=== PATIENT | male | born 1955 | race Caucasian/White ===

== ENCOUNTER 2017-01-30 09:31 | Outpatient (CLI) | payer MEDICARE ==
[~2017-01-30] VITALS: Ht 172.7 cm; Wt 82.0 kg
[~2017-01-30 09:31] MED LIST: LIDOCAINE 2% INJ 100 MG/5 ML SDV (FOR ANES.) As Ordered ONE; PROPOFOL 200 MG/20 ML VIAL As Ordered ONE
[2017-01-30] MEDS ORDERED: NS 1,000 ML IV ONE (10:00)
[2017-01-30] MEDS ORDERED: LEVE1INJ5 SC (10:36)
[2017-01-30] MEDS ORDERED: APRI0.37 PO (10:36)
[2017-01-30] MEDS ORDERED: LEXA1TAB PO (10:36)
[2017-01-30] MEDS ORDERED: GLYB1TAB67 PO (10:36)
[2017-01-30] MEDS ORDERED: EZET10TA PO (10:36)
[2017-01-30] MEDS ORDERED: ALEN70SO PO (10:36)
[2017-01-30] MEDS ORDERED: LISI-542 PO (10:36)
[2017-01-30] MEDS ORDERED: JANU100T PO (10:36)
[2017-01-30] MEDS ORDERED: TRAM50TA2 PO (10:36)
[2017-01-30] MEDS ORDERED: MELO15TA4 PO (10:36)
[2017-01-30] MEDS ORDERED: [UNRECOGNIZED DRUG - OTHER] (10:36)
--- NOTE | 2017-01-30 11:17 | ROOR ---
Patient Name: Tyler Richey Procedure Date: 01/30/2017 10:58 AM Date of : 1955 Age: 61 Room: [facility] Gender: Male Note Status: Finalized Procedure: Upper GI endoscopy Indications: Heartburn Providers: Santos Morris MD Referring MD: SANDRA LO MD Requesting Provider: Medicines: Monitored Anesthesia Care Complications: No immediate complications. Procedure: Pre-Anesthesia Assessment: - The heart rate, respiratory rate, oxygen saturations, blood pressure, adequacy of pulmonary ventilation, and response to care were monitored throughout the procedure. The Endoscope was introduced through the mouth, and advanced to the second part of duodenum. The upper GI endoscopy was accomplished without difficulty. The patient tolerated the procedure well. Findings: The Z-line was regular and was found 40 cm from the incisors. A small hiatal hernia was present. No other significant abnormalities were identified in a careful examination of the stomach. The exam of the duodenum was otherwise normal. Impression: - Z-line regular, 40 cm from the incisors. - Small hiatal hernia. - No specimens collected. - The examination was otherwise normal. Recommendation: - Patient has a contact number available for emergencies. The signs and symptoms of potential delayed complications were discussed with the patient. Return to normal activities tomorrow. Written discharge instructions were provided to the patient. - High fiber diet. - Discharge patient to home. - Follow an antireflux regimen. - Continue present medications. - Return to referring physician. - The findings and recommendations were discussed with the patient's family. Santos Morris MD Santos Morris MD 01/30/2017 11:16:37 AM This report has been signed electronically. Number of Addenda: 0 Note Initiated On: 01/30/2017 10:58 AM Estimated Blood Loss: Estimated blood loss: none.
--- NOTE | 2017-01-30 11:32 | ROOR ---
Patient Name: Tyler Richey Procedure Date: 01/30/2017 10:58 AM Date of : 1955 Age: 61 Room: [facility] Gender: Male Note Status: Finalized Procedure: Total Colonoscopy to Cecum + ileoscopy + Biopsy Polypectomy Indications: Follow-up of Crohn's disease of the small bowel Providers: Santos Morris MD Referring MD: SANDRA LO MD Requesting Provider: Medicines: Monitored Anesthesia Care Complications: No immediate complications. Procedure: Pre-Anesthesia Assessment: - The heart rate, respiratory rate, oxygen saturations, blood pressure, adequacy of pulmonary ventilation, and response to care were monitored throughout the procedure. The Colonoscope was introduced through the anus and advanced to the cecum, identified by appendiceal orifice and ileocecal valve. The colonoscopy was performed without difficulty. The patient tolerated the procedure well. The quality of the bowel preparation was good. Findings: The perianal and digital rectal examinations were normal. Non-bleeding internal hemorrhoids were found during retroflexion. The hemorrhoids were small and Grade I (internal hemorrhoids that do not prolapse). A diminutive polyp was found in the cecum. The polyp was sessile. The polyp was removed with a jumbo cold forceps. Resection and retrieval were complete. The exam was otherwise without abnormality. Localized inflammation, severe and characterized by congestion (edema), erythema and scarring was found in the distal ileum. The exam was otherwise without abnormality. Impression: - Non-bleeding internal hemorrhoids. - One diminutive polyp in the cecum, removed with a jumbo cold forceps. Resected and retrieved. - The examination was otherwise normal. - Crohn's disease with ileitis. - The examination was otherwise normal. - The exam was otherwise normal to the cecum. Recommendation: - Patient has a contact number available for emergencies. The signs and symptoms of potential delayed complications were discussed with the patient. Return to normal activities tomorrow. Written discharge instructions were provided to the patient. - Resume previous diet. - Discharge patient to home. - Continue present medications. - Await pathology results. - Telephone GI clinic for pathology results in 1 week. - Return to referring physician. - The findings and recommendations were discussed with the patient's family. Santos Morris MD Santos Morris MD 01/30/2017 11:32:00 AM This report has been signed electronically. Number of Addenda: 0 Note Initiated On: 01/30/2017 10:58 AM Estimated Blood Loss: Estimated blood loss: none.
[2017-01-30 11:55] VITALS: BP 144/73
== END 2017-01-30 12:11 ==
LOC: M OPP 09:31
PROVIDERS: ATTEND Internal Medicine Gastroenterology
DX: K50.00 Crohn's disease of small intestine without complications (principal); K64.0 First degree hemorrhoids; D12.0 Benign neoplasm of cecum; R12 Heartburn; K44.9 Diaphragmatic hernia without obstruction or gangrene; E78.5 Hyperlipidemia, unspecified; I10 Essential (primary) hypertension; E10.9 Type 1 diabetes mellitus without complications; F41.9 Anxiety disorder, unspecified; Z88.0 Allergy status to penicillin

== ENCOUNTER → 2017-02-11 | Outpatient (CLI) | payer MEDICARE ==
[~2017-02-11] MED LIST changes: +ALEN70SO PO; +APRI0.37 PO; +E-Z-GAS II EFFERVESCENT PACKET (SODIUM BICARB./CITRIC ACID/SIMETHICONE) As Ordered ONE; +E-Z-HD 98% w/w 340GM SUSP BTL As Ordered ONE; +E-Z-PAQUE 96% w/w SUSP 176GM BTL As Ordered ONE; +EZET10TA PO; +GLYB1TAB67 PO; +JANU100T PO; +LEVE1INJ5 SC; +LEXA1TAB PO; -LIDOCAINE 2% INJ 100 MG/5 ML SDV (FOR ANES.) As Ordered ONE; +LISI-542 PO; +MELO15TA4 PO; -PROPOFOL 200 MG/20 ML VIAL As Ordered ONE; +TRAM50TA2 PO; +[UNRECOGNIZED DRUG - OTHER]
--- NOTE | 2017-02-11 19:26 | REP ---
UPPER GI EXAMINATION: The procedure was performed by NELL Yousif under the direct supervision of Dr. Merida. All imaging was reviewed with Dr. Merida prior to dictation. Patient was able to ingest liquid barium and air in a quantity sufficient to produce a double contrast examination. The oral and pharyngeal stages of deglutition appear unremarkable. Esophageal transport was prompt and efficient There was no evidence of esophagitis, stricture, mucosal ring or hiatal hernia. Gastroesophageal reflux was not observed on this exam. The stomach vasquez were normally outlined. The rugal folds were smooth and regular. There was no evidence of gastritis, neoplasm, or ulcerative disease. The duodenal vasquez are normally outlined. There was no evidence of duodenitis, pancreatitis, peptic ulcer disease or neoplasm. The visualized portion of the proximal small bowel was normal in course and caliber. Additional liquid barium was given at the end of the examination in order to perform a small bowel follow through. During fluoroscopy gentle palpation of the small bowel loops showed them to be freely movable and pliable without evidence of a fixed or angulated loop. The small bowel mucosal pattern was normal in course and caliber. There was no evidence of a transition to suggest a partial small bowel obstruction. Spot filming of the terminal ileum showed there to be some narrowing and mural thickening. This narrowing does not appear to cause any obstruction at this time. This is consistent with his history of Crohn's disease. IMPRESSION: Unremarkable double contrast upper GI examination. Small bowel follow through showing narrowing of the terminal ileum with mural thickening. This is consistent with Crohn's disease. Fluoroscopy time was 3 minutes and 59 seconds. Reviewed by NELL Pierre 02/12/2017 08:17 AEdited and Signed by Shay Merida MD 02/12/2017 09:52 A
== END ==
LOC: M RAD 09:25
PROVIDERS: ATTEND Internal Medicine Gastroenterology
DX: K50.00 Crohn's disease of small intestine without complications (principal)

== ENCOUNTER → 2017-12-09 | Outpatient (CLI) | payer MEDICARE ==
[2017-12-09 13:22] LABS: APPEARANCE, URINE CLEAR (CLEAR); BACTERIA, URINE AUTO NEGATIVE (NEGATIVE); BILIRUBIN, URINE AUTO NEGATIVE (NEGATIVE); BLOOD, URINE BLOOD NEGATIVE (NEGATIVE); COLOR, URINE YELLOW (YELLOW); GLUCOSE, URINE (UA) AUTO 3+ mg/dL (NEGATIVE); KETONE, URINE AUTO NEGATIVE (NEGATIVE); LEUKOCYTE ESTERASE, URINE AUTO NEGATIVE (NEGATIVE); NITRITE, URINE AUTO NEGATIVE (NEGATIVE); PROTEIN, URINE AUTO NEGATIVE (NEGATIVE); RBC, URINE AUTO 0 /HPF (0-3); SPECIFIC GRAVITY URINE AUTO 1.026 (1.002-1.035); SQUAMOUS EPITHELIAL CELL UR AU 0 /HPF (0-6); UROBILINOGEN, URINE AUTO 0.2 mg/dL (0.0-2.0); WBC, URINE AUTO 0 /HPF (0-3)
[2017-12-09 14:19] LABS: ANION GAP 9 MEQ/L (8-16); BLOOD UREA NITROGEN 26 MG/DL (7-18); CALCIUM LEVEL 9.2 MG/DL (8.8-10.2); CARBON DIOXIDE LEVEL 27 MEQ/L (21-32); CHLORIDE LEVEL 101 MEQ/L (98-107); CREATININE FOR GFR 1.56 MG/DL (0.70-1.30); GLOMERULAR FILTRATION RATE 48.4 (>49); GLUCOSE, FASTING 541 MG/DL (70-100); SODIUM LEVEL 137 MEQ/L (136-145)
== END ==
LOC: M SMT 10:39
DX: N13.30 Unspecified hydronephrosis (principal); Z79.899 Other long term (current) drug therapy
CPT/HCPCS: 80048

== ENCOUNTER → 2022-12-19 | Outpatient (REF) | payer MEDICARE ==
[~2022-12-19] MED LIST changes: -ALEN70SO PO; +ALEN70SO2 PO; -E-Z-GAS II EFFERVESCENT PACKET (SODIUM BICARB./CITRIC ACID/SIMETHICONE) As Ordered ONE; -E-Z-HD 98% w/w 340GM SUSP BTL As Ordered ONE; -E-Z-PAQUE 96% w/w SUSP 176GM BTL As Ordered ONE; -EZET10TA PO; +EZET10TA21 PO; +GLYB-150 PO; -GLYB1TAB67 PO; +INSU100I6 SC; -LEVE1INJ5 SC; -LISI-542 PO; +LISI5TAB11 PO; +MELO15TA28 PO; -MELO15TA4 PO
[2022-12-19 18:38] LABS: PERCENT SATURATION 9.1 % (19.7-50.0)
[2022-12-19 18:41] LABS: FERRITIN 63.3 NG/ML (10.5-307.3)
[2022-12-19 18:45] LABS: CREATININE,RANDOM URINE 87.6 MG/DL
[2022-12-19 18:47] LABS: TOTAL PROTEIN,RANDOM URINE 138.8 MG/DL (0.0-14.0)
== END ==
LOC: M LAB REF 17:10
PROVIDERS: ATTEND Internal Medicine Nephrology
DX: D61.3 Idiopathic aplastic anemia (principal); N18.32 Chronic kidney disease, stage 3b

== ENCOUNTER 2023-03-11 13:34 | Outpatient (CLI) | payer MEDICARE ==
[~2023-03-11] VITALS: Ht 172.7 cm; Wt 83.6 kg
[~2023-03-11 13:34] MED LIST changes: +ALBUTEROL SULFATE 2.5MG/0.5ML INH NEB SOLN INH PRN; +EPINEPHrine INJ 1 MG/ML 1ML AMP IM PRN; +diphenhydrAMINE 50MG/ML VIAL IV PRN; +methylPREDNISolone 125MG 2ML VIAL IV PRN
[2023-03-11 13:50] VITALS: BP 137/69; O2SAT 98
[2023-03-11] MEDS ORDERED: FERRIC CARBOXYMALTOSE INJ 750 MG in NS 250 ML (>50kg) IV ONE ×3 (14:00)
[2023-03-11] MEDS ORDERED: NS 1,000 ML IV SCH (14:00)
[2023-03-11 15:50] VITALS: BP 176/77; O2SAT 99
== END 2023-03-11 15:50 ==
LOC: M INFU 13:34
PROVIDERS: ATTEND Internal Medicine Nephrology
DX: E61.1 Iron deficiency (principal); Z88.0 Allergy status to penicillin
CPT/HCPCS: 96365; J1439

== ENCOUNTER → 2023-12-13 | Outpatient (REF) | payer OTHER, MEDICARE ==
[~2023-12-13] MED LIST changes: -ALBUTEROL SULFATE 2.5MG/0.5ML INH NEB SOLN INH PRN; +AMLO1TAB24; -EPINEPHrine INJ 1 MG/ML 1ML AMP IM PRN; +FERR325T3; +HYDR-3363; +JANU25TA; +LANTINJ4; +LEVO50TA5; +MULT-90; +NATE60TA13; +NOVOINJ3; +PANT40TA29; -diphenhydrAMINE 50MG/ML VIAL IV PRN; -methylPREDNISolone 125MG 2ML VIAL IV PRN
[2023-12-13 18:07] LABS: TOTAL PROTEIN,RANDOM URINE 76.4 MG/DL (0.0-14.0)
[2023-12-13 18:12] LABS: CREATININE,RANDOM URINE 50.2 MG/DL
== END ==
LOC: M LAB REF 17:01
PROVIDERS: ATTEND Internal Medicine Nephrology
DX: N18.32 Chronic kidney disease, stage 3b (principal)

== ENCOUNTER → 2024-01-07 | Outpatient (CLI) | payer MEDICARE ==
[~2024-01-07] MED LIST changes: +LIDOCAINE 1% MDV 20ML VIAL As Ordered ONE; +TORS20TA2 PO
[2024-01-07 13:05] LABS: BASO # 0.1 10^3/uL (0.0-0.2); BASO % 0.9 % (0.0-1.0); EOS # 0.2 10^3/uL (0.0-0.5); EOS % 2.8 % (0.0-3.0); HEMATOCRIT 34.5 % (42.0-52.0); HEMOGLOBIN 11.2 g/dl (13.5-17.5); LYMPH # 1.3 10^3/uL (1.5-5.0); LYMPH % 14.8 % (24.0-44.0); MEAN CORPUSCULAR HEMOGLOBIN 27.9 pg (27.0-33.0); MEAN CORPUSCULAR HGB CONC 32.5 g/dl (32.0-36.5); MONO # 0.7 10^3/uL (0.0-0.8); MONO % 8.2 % (2.0-8.0); NEUTROPHILS # 6.2 10^3/uL (1.5-8.5); NEUTROPHILS % 72.9 % (36.0-66.0); PLATELET COUNT, AUTOMATED 364 10^3/uL (150-450); RED BLOOD COUNT 4.01 10^6/uL (4.30-6.10); WHITE BLOOD COUNT 8.5 10^3/uL (4.0-10.0)
[2024-01-07 13:23] VITALS: BP 171/73; O2SAT 95
== END ==
LOC: M IRPRO 12:23
PROVIDERS: ATTEND Internal Medicine Medical Oncology
DX: D64.9 Anemia, unspecified (principal)